=== PATIENT | male | born 1955 | race Caucasian/White ===

== ENCOUNTER 2018-01-24 10:10 | Inpatient (IN) | payer MEDICAID, OTHER ==
[~2018-01-24] VITALS: Ht 165.1 cm; Wt 86.9 kg
[2018-01-24] MEDS ORDERED: LORazepam 2 MG/ML, 1ML ONE ×2 (11:55→14:16)
[2018-01-24] MEDS ORDERED: ONDANSETRON ODT 4 MG ONE (11:55)
[2018-01-24] MEDS ORDERED: LORazepam 2 MG/ML, 1ML IVPush ONE (12:00)
[2018-01-24] MEDS ORDERED: SODIUM CHLORIDE 0.9% 1,000ML IVBOLUS ONE (12:00)
[2018-01-24] MEDS ORDERED: ONDANSETRON ODT 4 MG PO ONE (12:00)
[2018-01-24] MEDS ORDERED: THIAMINE 100 MG in SODIUM CHLORIDE 0.9% 50 ML IVPB ONE (12:00)
[2018-01-24 12:05] LABS: BASOPHILS # (AUTO) 0.03 x10^3/uL (0-0.1); BASOPHILS % (AUTO) 0 % (0-1); EOSINOPHILS % (AUTO) 0 % (1-7); LYMPHOCYTES # (AUTO) 0.74 x10^3/uL (1-3.4); LYMPHOCYTES % (AUTO) 9 % (22-44); MD NO; MEAN CORPUSCULAR HGB CONC 34.7 g/dL (33.2-36.2); MEAN CORPUSCULAR VOLUME 92.3 fL (81-97); MEAN PLATELET VOLUME 7.8 fL (7.4-10.4); MONOCYTES % (AUTO) 2 % (2-9); NEUTROPHILS # (AUTO) 7.67 x10^3/uL (1.8-6.8); NEUTROPHILS % (AUTO) 89 % (42-75); PLATELET COUNT 198 x10^3/uL (130-400); RED BLOOD COUNT 4.89 x10^6/uL (4.38-5.82); RED CELL DISTRIBUTION WIDTH 13.4 % (9.4-14.8)
[2018-01-24 12:15] LABS: ALBUMIN 4.5 g/dL (3.4-5.0); CALCIUM 7.9 mg/dL (8.5-10.1); CHLORIDE 101 mmol/L (98-107)
[2018-01-24 12:19] LABS: ALANINE AMINOTRANSFERASE 60 U/L (12-78); ALKALINE PHOSPHATASE 73 U/L (45-117); BILIRUBIN,TOTAL 0.7 mg/dL (0.2-1.0); CREATININE 1.93 mg/dL (0.7-1.3)
[2018-01-24 12:26] LABS: ANION GAP 30 mmol/L (5-15)
[2018-01-24] MEDS ORDERED: SODIUM CHLORIDE 0.9% 1,000 ML IV ONE (12:50)
[2018-01-24 13:10] LABS: PH, VENOUS 7.169 pH (7.320-7.420)
[2018-01-24 13:13] LABS: FIO2 ROOM AIR %
[2018-01-24] MEDS ORDERED: D5%-0.45% NACL 1,000 ML IV ONE (14:02)
[2018-01-24] MEDS ORDERED: PROMETHAZINE 25 MG/ML, 1ML ONE (14:16)
[2018-01-24 14:18] LABS: ACETONE, SERUM Large (80mg/dL) mg/dL (Negative)
[2018-01-24] MEDS: LORazepam 2 MG/ML, 1ML IVPush PRN ×2 (14:26→14:54)
[2018-01-24] MEDS ORDERED: PROMETHAZINE 25 MG/ML, 1ML IM ONE (14:30)
[2018-01-24] MEDS ORDERED: hydrALAzine 20 MG/ML, 1ML ONE (14:50)
[2018-01-24] MEDS ORDERED: LORazepam 2 MG/ML, 1ML IV PRN ×5 (15:00)
[2018-01-24] MEDS ORDERED: ENALAPRILAT 1.25 MG/ML, 2ML IVPush PRN (15:00)
[2018-01-24] MEDS ORDERED: LABETALOL 5MG/ML, 20ML IVPush PRN (15:00)
[2018-01-24] MEDS ORDERED: FOLIC ACID 5 MG/ML IM ONE (15:00)
[2018-01-24] MEDS ORDERED: hydrALAzine 20 MG/ML, 1ML IV ONE (15:00)
[2018-01-24] MEDS ORDERED: LORazepam 1MG TABLET PO PRN ×3 (15:00)
[2018-01-24 15:20] VITALS: BP 157/77
[2018-01-24 15:55] LABS: MEAN CORPUSCULAR HEMOGLOBIN 31.8 pg (27.5-34.5); MEAN CORPUSCULAR HGB CONC 34.6 g/dL (33.2-36.2); MEAN PLATELET VOLUME 8.2 fL (7.4-10.4); PLATELET COUNT 152 x10^3/uL (130-400); RED BLOOD COUNT 4.46 x10^6/uL (4.38-5.82); RED CELL DISTRIBUTION WIDTH 13.3 % (9.4-14.8)
[2018-01-24 16:37] LABS: BASOPHILS % (AUTO) 0 % (0-1); EOSINOPHILS % (AUTO) 0 % (1-7); LYMPHOCYTES # (AUTO) 0.73 x10^3/uL (1-3.4); LYMPHOCYTES % (AUTO) 9 % (22-44); MD SCAN; MONOCYTES # (AUTO) 0.25 x10^3/uL (0.2-0.8); MONOCYTES % (AUTO) 3 % (2-9); NEUTROPHILS # (AUTO) 7.63 x10^3/uL (1.8-6.8); NEUTROPHILS % (AUTO) 89 % (42-75)
[2018-01-24] MEDS ORDERED: FOLIC ACID 1 MG TABLET ONE (17:18)
[2018-01-24] MEDS: HEPARIN 5,000 UNITS/ML, 1ML SQ SCH (17:22)
[2018-01-24] MEDS: MAGNESIUM CHLORIDE 64 MG TABLET.DR PO SCH (17:22)
[2018-01-24] MEDS ORDERED: FOLIC ACID 1 MG TABLET PO ONE (17:30)
[2018-01-24] MEDS: LORazepam 1MG TABLET PO PRN (18:07)
[2018-01-24 19:38] LABS: AMPHETAMINE SCREEN, URINE Negative (Negative); BARBITURATE SCREEN, URINE Negative (Negative); BENZODIAZEPINE SCREEN, URINE Negative (Negative); COCAINE SCREEN, URINE Negative (Negative)
[2018-01-24 19:39] LABS: CANNABINOID SCREEN, URINE Negative (Negative); METHADONE SCREEN, URINE Negative (Negative); OPIATE SCREEN, URINE Negative (Negative)
[2018-01-24 19:40] VITALS: BP 181/91
[2018-01-24] MEDS: SODIUM CHLORIDE 0.9% 1,000 ML IV SCH (19:45)
[2018-01-24] MEDS: BACLOFEN 10 MG TABLET PO SCH (21:25)
[2018-01-25] MEDS: HEPARIN 5,000 UNITS/ML, 1ML SQ SCH ×3 (00:43→16:34)
[2018-01-25] MEDS: MAGNESIUM CHLORIDE 64 MG TABLET.DR PO SCH ×3 (00:43→16:27)
[2018-01-25] MEDS: LORazepam 1MG TABLET PO PRN ×5 (00:56→16:38)
[2018-01-25 01:44] VITALS: BP 163/88
[2018-01-25] MEDS: SODIUM CHLORIDE 0.9% 1,000 ML IV SCH ×4 (03:29→20:07)
[2018-01-25 05:11] LABS: CHLORIDE 110 mmol/L (98-107)
[2018-01-25 05:20] LABS: ALANINE AMINOTRANSFERASE 40 U/L (12-78); ALBUMIN 3.7 g/dL (3.4-5.0); ALKALINE PHOSPHATASE 54 U/L (45-117); ANION GAP 11 mmol/L (5-15); CALCIUM 7.3 mg/dL (8.5-10.1); CREATININE 1.33 mg/dL (0.7-1.3)
[2018-01-25 07:47] VITALS: BP 168/85
[2018-01-25] MEDS ORDERED: INSULIN LISPRO 100 UNITS/ML, PEN SQ-INSULIN ONE (08:30)
[2018-01-25] MEDS: BACLOFEN 10 MG TABLET PO SCH ×2 (08:32→20:58)
[2018-01-25] MEDS: MULTIVITAMINS/MINERALS TABLET PO SCH (08:32)
[2018-01-25] MEDS: INSULIN LISPRO 100 UNITS/ML, PEN SQ-INSULIN SCH ×3 (12:07→20:59)
[2018-01-25 12:30] VITALS: BP 159/85
[2018-01-25 20:35] VITALS: BP 171/88
[2018-01-25] MEDS: LORazepam 0.5MG TABLET PO PRN (20:58)
[2018-01-25 21:15] VITALS: BP 169/99
[2018-01-26] MEDS: MAGNESIUM CHLORIDE 64 MG TABLET.DR PO SCH ×3 (00:30→16:09)
[2018-01-26] MEDS: HEPARIN 5,000 UNITS/ML, 1ML SQ SCH ×3 (00:30→16:10)
[2018-01-26 01:45] VITALS: BP 180/100
[2018-01-26] MEDS: hydrALAzine 20 MG/ML, 1ML IVPush PRN ×2 (01:53→10:13)
[2018-01-26] MEDS: SODIUM CHLORIDE 0.9% 1,000 ML IV SCH ×2 (01:54→07:56)
[2018-01-26] MEDS: LORazepam 0.5MG TABLET PO PRN (02:02)
[2018-01-26 05:45] LABS: ANION GAP 11 mmol/L (5-15); CALCIUM 7.2 mg/dL (8.5-10.1); CHLORIDE 109 mmol/L (98-107)
[2018-01-26 05:46] LABS: CREATININE 0.93 mg/dL (0.7-1.3)
[2018-01-26 06:05] LABS: MEAN CORPUSCULAR HEMOGLOBIN 31.9 pg (27.5-34.5); MEAN CORPUSCULAR HGB CONC 34.9 g/dL (33.2-36.2); MEAN CORPUSCULAR VOLUME 91.3 fL (81-97); PLATELET COUNT 89 x10^3/uL (130-400); RED BLOOD COUNT 3.99 x10^6/uL (4.38-5.82); RED CELL DISTRIBUTION WIDTH 13.1 % (9.4-14.8)
[2018-01-26 06:08] LABS: BASOPHILS # (AUTO) 0.02 x10^3/uL (0-0.1); BASOPHILS % (AUTO) 1 % (0-1); EOSINOPHILS # (AUTO) 0.04 x10^3/uL (0-0.4); EOSINOPHILS % (AUTO) 1 % (1-7); LYMPHOCYTES # (AUTO) 0.97 x10^3/uL (1-3.4); LYMPHOCYTES % (AUTO) 25 % (22-44); MD SCAN; MONOCYTES # (AUTO) 0.36 x10^3/uL (0.2-0.8); MONOCYTES % (AUTO) 9 % (2-9); NEUTROPHILS # (AUTO) 2.51 x10^3/uL (1.8-6.8); NEUTROPHILS % (AUTO) 64 % (42-75)
[2018-01-26] MEDS: LORazepam 1MG TABLET PO PRN (06:24)
[2018-01-26] MEDS: BACLOFEN 10 MG TABLET PO SCH (07:56)
[2018-01-26] MEDS: INSULIN LISPRO 100 UNITS/ML, PEN SQ-INSULIN SCH ×3 (07:56→16:10)
[2018-01-26] MEDS: MULTIVITAMINS/MINERALS TABLET PO SCH (07:56)
[2018-01-26 08:43] VITALS: BP 170/94
[2018-01-26] MEDS ORDERED: THIAMINE 100 MG in DEXTROSE 5% 50 ML IVPB SCH (09:00)
[2018-01-26 11:03] VITALS: BP 157/84
[2018-01-26 13:56] VITALS: BP 164/87
[2018-01-26] MEDS ORDERED: Magnesium Chloride PO (15:54)
[2018-01-26] MEDS ORDERED: METF500T PO (15:57)
[2018-01-26] MEDS ORDERED: AMLO10TA4 PO (15:57)
[2018-01-26] MEDS ORDERED: POTASSIUM CHLORIDE 20 MEQ TAB.ER.PRT PO ONE (16:00)
== END 2018-01-26 17:00 | disposition home or self-care (01) | DRG 683 ==
LOC: ED 14:45 → 4EST 14:46 → ED 15:15 → 4EST 17:05 → DCLOUNGE 01-26 16:49
PROVIDERS: ADMIT Hospitalist; ATTEND Hospitalist
DX: N17.9 Acute kidney failure, unspecified (principal); F10.239 Alcohol dependence with withdrawal, unspecified; E87.2 Acidosis; I16.0 Hypertensive urgency; K76.0 Fatty (change of) liver, not elsewhere classified; N28.1 Cyst of kidney, acquired; R73.9 Hyperglycemia, unspecified; E83.51 Hypocalcemia; R74.0 Nonspecific elevation of levels of transaminase and lactic acid dehydrogenase [LDH]; I10 Essential (primary) hypertension; Z80.1 Family history of malignant neoplasm of trachea, bronchus and lung; Z82.49 Family history of ischemic heart disease and other diseases of the circulatory system
CPT/HCPCS: 36415; 74176; 80048; 80053; 80307; 82010; 82803; 82962; 83036; 83690; 83735; 84100; 85025; 93005; 96365; 96372; 96375; G0378; J1644; J2550; J3411; Q0162; J0360; J1815; J2060; J7030